=== PATIENT | male | born 1970 | race Hispanic/Latino ===

== ENCOUNTER 2023-09-19 15:54 | Emergency (ER) | payer BC ==
[~2023-09-19] VITALS: Ht 165.1 cm; Wt 81.6 kg
[2023-09-19 15:56] VITALS: BP 120/52; PULSE 91; RESP 20
== END 2023-09-19 18:55 | disposition home or self-care (01) ==
LOC: EDH 15:54 → EEVIPCON 15:54 → EDH 18:55
DX: S09.90XA Unspecified injury of head, initial encounter (principal); X58.XXXA Exposure to other specified factors, initial encounter; Y93.89 Activity, other specified; Y92.89 Other specified places as the place of occurrence of the external cause; Y99.8 Other external cause status
CPT/HCPCS: 70450